=== PATIENT | female | born 1990 | race Caucasian/White ===

== ENCOUNTER 2018-05-27 17:29 | Emergency (ER) | payer MEDICAID ==
[~2018-05-27] VITALS: Ht 167.6 cm; Wt 86.2 kg
[~2018-05-27 17:29] MED LIST: 'PARAFON FORTE500 M1 PO; AMOXIL250 M1 PO; AMOXIL250 MG PO; AMOXIL500 MG PO; BACTRIM DS 8001 TA1 PO; FERROUS SULFAT325 M1 PO; IRON325 M1 PO; KEFLEX500 MG PO; MACROBID100 M1 PO; MEDROL DOSEPAK4 MG PO; MIRALAX POWDER17 G1 PO; NAPROSYN500 MG PO; NKHM; VICODIN 5/500 505 MG PO; ZOFRAN ODT4 MG SL; ZOFRAN4 MG SL
== END 2018-05-27 17:47 | disposition home or self-care (01) ==
LOC: ED 17:29
DX: Z32.01 Encounter for pregnancy test, result positive (principal)

== ENCOUNTER 2020-01-31 10:35 | Emergency (ER) | payer OTHER ==
[~2020-01-31] VITALS: Ht 167.6 cm; Wt 83.9 kg
[2020-01-31] MEDS ORDERED: OCUFLOX 0.3% 5 M5 ML OPH (11:37)
[2020-01-31] MEDS ORDERED: ACULAR 0.5%3 ML OPH (11:37)
== END 2020-01-31 11:42 | disposition home or self-care (01) ==
LOC: ED 10:35
DX: S05.01XA Injury of conjunctiva and corneal abrasion without foreign body, right eye, initial encounter (principal); X58.XXXA Exposure to other specified factors, initial encounter; Y93.89 Activity, other specified; Y92.89 Other specified places as the place of occurrence of the external cause; Y99.8 Other external cause status